=== PATIENT | female | born 1995 | race Caucasian/White ===

== ENCOUNTER 2022-04-26 18:21 | Emergency (ER) | payer OTHER ==
[~2022-04-26] VITALS: Ht 167.6 cm; Wt 81.7 kg
[2022-04-26] MEDS ORDERED: MONTELUKAST SOD10 MG PO (18:52)
== END 2022-04-26 19:58 | disposition home or self-care (01) ==
LOC: ED 18:21
DX: S93.402A Sprain of unspecified ligament of left ankle, initial encounter (principal); W18.42XA Slipping, tripping and stumbling without falling due to stepping into hole or opening, initial encounter; Z79.899 Other long term (current) drug therapy
CPT/HCPCS: 73610; 73630; 99283-25